=== PATIENT | female | born 1955 | race Caucasian/White ===

== ENCOUNTER 2018-12-08 22:37 | Inpatient (IN) | payer OTHER ==
[~2018-12-08] VITALS: Ht 162.5 cm; Wt 61.2 kg
--- NOTE | ~2018-12-08 | PR ---
[place], [place] PROGRESS NOTE NAME: ROBBIE FAULKNER UNIT #: [id number] ROOM: 316 DOCTOR: LADY BONILLA MD BIRTHDATE: [birth year] DOS: 12/16/2018 INTERVAL NOTE CHIEF COMPLAINT: "I am feeling better, but there is still room for improvement." SUMMARY OF THE VISIT: The patient was interviewed as she was sitting, finishing her breakfast. She engaged readily in conversation, reporting that she is feeling better, but there is still some depression and anxiety, persisting. She did thank me for helping her and also discussed with me her fear about returning home and having to clean the home because she had scabies. She has several pets at home to that, she is worried about. She convincingly denies medication side effects and states she is willing to allow me to increase her medications accordingly. MENTAL STATUS: She is alert and oriented. Mood does seem to be still somewhat depressed with anxious overtones, but overall improved from admission. There is no hypomania or hector. There is no gross psychosis. Memory is intact. PLAN: I will go ahead and increase her Periactin to 8 mg 4 times a day, Seroquel 50 mg 4 times a day and hydroxyzine to 50 mg 4 times a day. My hope is to avoid the use of any addicting agent and utilize drugs that will multitask to stabilize her mood, decrease her itching while decreasing the anxiety. We will engage in individual and christine milieu activity, returning then to the least restrictive environment when psychiatrically stable. LADY BONILLA MD CM:PNTRANS 42 LADY BONILLA MD 12/16/182139 interface
--- NOTE | ~2018-12-08 | WRIGHTHP ---
[place], [place] PATIENT HISTORY AND PHYSICAL EXAM NAME: ROBBIE FAULKNER UNIT #: [id number] ROOM: 311 DOCTOR: LADY BONILLA MD BIRTHDATE: [birth year] DOS: 12/09/2018 INITIAL PSYCHIATRIC EVALUATION CHIEF COMPLAINT: "I thought about getting a taxi and driving off a mountain." HISTORY OF PRESENT ILLNESS: This is a 63-year-old white female who was admitted to the [facility] from [facility]. The patient had presented there acutely depressed, stating that she was suicidal. The patient at the age of 63 has a plethora of medical problems including end-stage COPD and significant cardiac issues as well as seizure disorder. The patient had hoped to undergo a lung transplant, but was denied because of her multiple medical problems. This has led to her becoming increasingly more depressed and despondent. The patient reports seeing Dr. Manny Vela and a counselor, Tiana, in his office for some time, but states that her depression has worsened over the last several weeks prior to this admission. She endorses multiple neurovegetative symptoms including poor sleep and appetite, anergia, anhedonia, hopeless and helpless feelings, crying spells and inability to cope. Most importantly, she is having fleeting suicidal ideation with a significant plan. She is admitted now to rule out organic factors to attempt to stabilize on medication and to determine the least restrictive environment to which she could return. PAST MEDICAL HISTORY: Remarkable for coronary artery disease, COPD, hyperlipidemia, hypertension, neuropathy, seizure disorder. SOCIAL HISTORY: The patient does not drink alcohol nor does she smoke cigarettes, although she does have a past history of cigarette smoking. She uses no illicit drugs. ALLERGIES: Listed to ASPIRIN. STRENGTHS: Ambulatory, good verbal skills. WEAKNESSES: Chronic mental health and physical ailments, poor coping skills. MENTAL STATUS: The patient is alert and oriented to person, place, approximate to time. Mood is overwhelmingly depressed and despondent. Her affect is flat, blunted and constricted. She initially spoke in a whisper, but then eventually became much more engaging, especially when she talked about her service animals. She endorses multiple neurovegetative symptoms including the suicidal ideation. There is no hypomania or hector noted. There are no overt auditory or visual hallucinations noted. No delusions, no paranoia. Short-term memory does have gaps, otherwise she is intact. DIAGNOSES UPON ADMISSION: Major depression, recurrent, severe and dysthymic disorder. PLAN: At this point, I have discontinued her current antidepressant and started her on Cymbalta 30 mg at bedtime. The patient has been complaining of significant itching. I will start her on Periactin 4 mg t.i.d. Of note, the [place], [place] PATIENT HISTORY AND PHYSICAL EXAM NAME: ROBBIE FAULKNER UNIT #: [id number] ROOM: 311 DOCTOR: LADY BONILLA MD BIRTHDATE: [birth year] patient is taking over 35 medications. I will reach out to the hospitalist to see if her medication regimen can be simplified into a much less polypharmacy regimen, so that she is not overwhelmed with her medications. Meanwhile, we will engage in individual and christine milieu activity with the ultimate plan to return to the least restrictive environment when psychiatrically stable. LADY BONILLA MD CM:HISPHYS:PATIENT HISTORY AND PHYSICAL EXAMINATION 6 2 LADY BONILLA MD 12/09/18901 interface
--- NOTE | ~2018-12-08 | PR ---
[place], [place] PROGRESS NOTE NAME: ROBBIE FAULKNER UNIT #: [id number] ROOM: 316 DOCTOR: LADY BONILLA MD BIRTHDATE: [birth year] DOS: 12/12/2018 CHIEF COMPLAINT: "I am still so itchy, but I think I am feeling less depressed." SUMMARY OF THE VISIT: The patient was interviewed as she had finished her breakfast and was sitting there, engaging in conversations with peers. She stopped and engaged in conversation with me shaking my hand and thanking me for helping her. Overall, she reports that she is feeling less depressed. The anxiety is still somewhat present as is the itching. She focused mainly on the itching. Nurses report that prior to starting the Seroquel, she did complain of more anxiety, but they have noticed that with the Seroquel on board, she does appear much less anxious and seems to be doing much better. MENTAL STATUS: She is alert and oriented to person, place and fairly to time. Mood does seem to be strongly trending towards euthymia. Affect is more appropriate. There is no hector, hypomania or gross psychosis noted. Memory is intact. PLAN: I will increase her Periactin from 4 mg 3 times a day to 4 mg 4 times a day in an effort to decrease her itching. We will continue to engage in individual and christine milieu activity, returning then to the least restrictive environment when psychiatrically stable. LADY BONILLA MD CM:PNTRANS [id number] LADY BONILLA MD 12/12/18 1024 interface
--- NOTE | ~2018-12-08 | PR ---
[place], [place] PROGRESS NOTE NAME: ROBBIE FAULKNER UNIT #: [id number] ROOM: 316 DOCTOR: LADY BONILLA MD BIRTHDATE: [birth year] DOS: 12/10/2018 INTERVAL NOTE CHIEF COMPLAINT: "I feel better, thank you." SUMMARY OF THE VISIT: The patient was interviewed as she was sitting on her bed, eating her breakfast. She currently is in isolation because of scabies. She was pleasant, however, as I approached and she smiled readily reporting that the itching is much less since the medication changes and she slept well and is feeling positive that she is going to get better. MENTAL STATUS: She is alert and oriented. Mood does seem to be more euthymic. Affect is more appropriate. There is no hector or hypomania present. There is no auditory or visual hallucination. No delusions, no paranoia. Memory is intact. PLAN: Her Tegretol level is therapeutic at 7.8, so we will maintain her current dosing of the Tegretol. I will increase her Cymbalta from 30 mg at bedtime to 60 mg at bedtime. Continue to engage in individual and christine milieu activity, returning to the least restrictive environment when psychiatrically stable. LADY BONILLA MD CM:PNTRANS 1 17 LADY BONILLA MD 12/10/18 2316 interface
--- NOTE | ~2018-12-08 | DS ---
[place], [place] DISCHARGE SUMMARY NAME: ROBBIE FAULKNER UNIT #: [id number] ROOM: 316 DOCTOR: LADY BONILLA MD BIRTHDATE: [birth year] DOS: 12/17/2018 CHIEF COMPLAINT: "I thought about getting a taxi and driving off a mountain." HISTORY OF PRESENT ILLNESS: This is a 63-year-old white female who was admitted through [facility]. The patient presented there acutely depressed, stating that she was suicidal. The patient has a plethora of medical problems including end-stage COPD, significant cardiac issues as well as seizure disorder. The patient had hoped to undergo a lung transplant, but has been denied this because her other medical conditions have made it impossible to do so. The patient endorsed significant depressive symptomatology as well as anxiety, noting multiple neurovegetative symptoms including poor sleep and appetite, anergia, anhedonia, hopeless, helpless feelings, crying spells, and inability to cope. The patient does see an outpatient counselor as well as Dr. Manny Vela, a psychiatrist in the [facility] [address]. She is admitted now to rule out any organic factors, to stabilize on medication, to engage in individual and christine milieu activity, returning then to the least restrictive environment when psychiatrically stable. SUMMARY OF THE HOSPITAL COURSE: The patient was admitted to the unit where her antidepressant regimen was discontinued in lieu of Cymbalta 30 mg at bedtime because of the significant anxiety that took the form of her constantly itching herself. The patient was started on hydroxyzine 50 mg t.i.d. and Periactin 4 mg t.i.d. This did impact positively on her anxiety and did calm her down somewhat, but she continued to persist nonetheless. Some of her itching was secondary to a diagnosis of scabies, which was treated by the hospitalist. Additionally, through the course of her stay, her Cymbalta was increased to 30 mg twice daily; Periactin was ultimately raised to 8 mg 4 times a day and the Vistaril to 50 mg 4 times a day. The patient did state that she had been on mood stabilizers in the past and had done well with Seroquel. Seroquel was reintroduced at a dose of 25 mg 3 times a day and subsequently increased to 50 mg 4 times a day to be given with the Periactin and the hydroxyzine. This impacted positively on her symptomatology. The patient became much less anxious, much less depressed and was able to engage readily in all group activities as well as attending to her own ADLs without help. The patient had improved sufficiently and had reported that the suicidal thoughts had dissipated completely. She returned home and will have outpatient followup with Dr. Manny Vela as well as his psychologist. MENTAL STATUS AT DISCHARGE: The patient is alert and oriented. Mood does seem to be euthymic. Affect appropriate. There is no hector, hypomania or psychosis. Memory is fully intact. DIAGNOSES AT DISCHARGE: Major depression, recurrent, severe and dysthymic disorder. PLAN: All of her prescriptions have been e-scribed to [facility]. She will have outpatient followup with Dr. Manny Vela as well as one of his counselors in the office. At the time of discharge, she was both medically and psychiatrically stable. [place], [place] DISCHARGE SUMMARY NAME: ROBBIE FAULKNER UNIT #: [id number] ROOM: [facility] DOCTOR: LADY BONILLA MD BIRTHDATE: [birth year] LADY BONILLA MD CM:ARIELLE [id number] LADY BONILLA MD 12/17/18 1008 interface
--- NOTE | ~2018-12-08 | PR ---
[place], [place] PROGRESS NOTE NAME: ROBBIE FAULKNER UNIT #: [id number] ROOM: 316 DOCTOR: LADY BONILLA MD BIRTHDATE: [birth year] DOS: 12/15/2018 CHIEF COMPLAINT: "I am still feeling very anxious." SUMMARY OF THE VISIT: The patient was interviewed as she was sitting finishing her breakfast. She reports ongoing anxiety throughout the day. She convincingly denies any medication side effects. Specifically, she denies any sedation or somnolence. She is willing to allow me to adjust her medicines accordingly. MENTAL STATUS: She is alert and oriented to person, place and time. Mood does seem to be trending towards euthymia with anxious overtone still present. There is no hypomania or hector. There is no gross psychosis. Short term, intermediate, and long-term memory for the most part are intact. PLAN: I will go ahead and increase her Seroquel from 25 mg 3 times a day to 50 mg 3 times a day and augment this immediately with Vistaril 50 mg 3 times a day in an effort to control this anxiety. We will continue her other psychotropics and continue to engage her in individual and christine milieu activity, returning then to the least restrictive environment when psychiatrically stable. LADY BONILLA MD CM:PNTRANS 0849 LADY BONILLA MD 12/15/18 0947 interface
[2018-12-08] MEDS ORDERED: VENTOLIN 02.5 MG/3 M INH (23:20)
[2018-12-08] MEDS ORDERED: PROAIR HFA8.5 GM INH (23:21)
[2018-12-08] MEDS ORDERED: ALENDRONATE SOD70 M1 PO (23:22)
[2018-12-08] MEDS ORDERED: LIPITOR40 MG PO (23:23)
[2018-12-08] MEDS ORDERED: CALCIUM 500 +1 EAC3 PO (23:24)
[2018-12-08] MEDS ORDERED: OYSTERCAL-D 501 EACH PO (23:24)
[2018-12-08] MEDS ORDERED: CLOPIDOGREL75 MG PO (23:26)
[2018-12-08] MEDS ORDERED: VITAMIN D31000 UNIT PO (23:26)
[2018-12-08] MEDS ORDERED: VOLTAREN T (23:30)
[2018-12-08] MEDS ORDERED: BREO ELLIPTA 11 EACH INH (23:32)
[2018-12-08] MEDS ORDERED: Nizoral 2%15 GM T (23:32)
[2018-12-08] MEDS ORDERED: LISINOPRIL10 M1 PO (23:33)
[2018-12-08] MEDS ORDERED: RESTORA RX CAP1 EACH PO (23:33)
[2018-12-08] MEDS ORDERED: MAG6464 MG PO (23:37)
[2018-12-08] MEDS ORDERED: REMERON15 M2 PO (23:39)
[2018-12-08] MEDS ORDERED: MULTIVITAMINS1 EAC5 PO (23:40)
[2018-12-08] MEDS ORDERED: NITROSTAT0.4 MG SL (23:41)
[2018-12-08] MEDS ORDERED: OMEPRAZOLE10 MG PO (23:42)
[2018-12-08] MEDS ORDERED: ONDANSETRON HYDR4 M1 PO (23:43)
[2018-12-08] MEDS ORDERED: LYRICA150 M1 PO (23:44)
[2018-12-08] MEDS ORDERED: SEROQUEL200 MG PO (23:44)
[2018-12-08] MEDS ORDERED: HEALTHYLAX17 GM PO (23:44)
[2018-12-08] MEDS ORDERED: DALI500T PO (23:45)
[2018-12-08] MEDS ORDERED: SODIUM CHLORIDE15 ML INH (23:47)
[2018-12-08] MEDS ORDERED: THEO-24 200MG200 MG PO (23:47)
[2018-12-08] MEDS ORDERED: INCRUSE ELLI62.5 MCG INH (23:48)
[2018-12-08] MEDS ORDERED: TEGRETOL200 MG PO (23:48)
[2018-12-08] MEDS ORDERED: ESTRADIOL42.5 GM V (23:58)
--- NOTE | 2018-12-09 01:19 | NUR ---
ROBBIE FAULKNER a 63 year old F admitted via stretcher from the ADMITTING as a emergency 72 hr. hold admission. Arrived on unit at 0119. ALLERGIES: ASPIRIN AND CELECOXIB. Vital signs are: 98.1-62-18 134/54. The client signed the following forms with stated understanding: Authorization For The Release of Medical Information, Clothing List, Consent and Release Forms/Receipt of Rights, Acknowledgement of Advance Directive Information, Behavioral Health Consent Form, and Informed Consent of Medications. Admitted under the services of Dr. IRENE AYALALADY. A search was conducted and hazardous articles were removed. Patient was pink slipped for consent of voluntary admission and hospitalization. Client was oriented to the unit. KALI RYAN
--- NOTE | 2018-12-09 01:23 | NUR ---
DR. ROSS NOTIFIED OF NEW ADMISSION. CONSULT TO BE PUT UNDER DR. NESS.
--- NOTE | 2018-12-09 01:35 | NUR ---
Dr. Subramanian came and saw patient. Awaiting new orders.
[2018-12-09 01:36] VITALS: BP 134/54
[2018-12-09 01:42] VITALS: BP 134/54
--- NOTE | 2018-12-09 03:00 | NUR ---
ROBBIE FAULKNER [id number] Please refer to the physician's history and physical for past medical history, comorbid conditions, and allergies. Diagnosis: MAJOR DEPRESSION RECURRENT Bc Score: 18,AT RISK WOUND DESCRIPTIONS: Wound Number: 1 Location of the wound: right upper arm Thickness: Partial Size: 0.1cm x 0.1cm x 0.1cm Tunneling: none Undermining: none Sinus Tract: none Presence of Exudate: Sanguineous Amount: Light Color: Red Odor: None Periwound Skin Appearance: Erythema Wound edges: approximated Pain (associated with wound): none at time of assessment How does patient state this happened? pt states very itchy and that she was given asprin that she is allergic to and that is what caused these areas Wound Number: 2 Location of the wound: left upper arm Thickness: Partial Size: 2.5cm x 2.5cm x 0.1cm Tunneling: none Undermining: none Sinus Tract: none Presence of Exudate: Sanguineous Amount: Light Color: Red Odor: None Periwound Skin Appearance: Erythema Wound edges: approximated Pain (associated with wound): none at time of assessment How does patient state this happened? pt states very itchy and that she was given asprin that she is allergic to and that is what caused these areas Patient has mulitple intact scabbed areas noted to bilateral upper arms, bilateral lower legs, upper chest, abdomen and upper back. Patient has linear scabbed areas noted to lower back and buttocks. Patient has scattered ecchymotic areas to bilateral upper arms, bilateral lower legs and abdomen Surface the patient is resting on: Proform SKIN PREVENTION RECOMMENDATION: 1. Pressure redistribution support surface as appropriate 2. Elevate heels 3. Remove boots/TEDS every shift and reapply 4. Head of bed 30 degrees as tolerated 5. Assess nutrition and hydration 6. Manage moisture 7. Avoid the use of containment devices while in bed 8. Use absorptive products on surfaces limit layers of linens on bed 9. Turn and reposition every 1-2 hours in bed and every 1 hour in chair as tolerated 10. Weight shifts every 15 minutes while up in chair 11. Offloading with pillows or device to keep heels elevated off bed 12. Monitor skin at least every shift 13. Inspect under medical devices twice a day WOUND TREATMENT RECOMMENDATIONS: Cleanse bilateral upper arms with nss and apply dsd due to drainage. Cleanse all scabbed areas with soap and water pat areas dry then apply hydrocortisone cream BID.
--- NOTE | 2018-12-09 03:05 | NUR ---
Notified Dr. Subramanian regarding patient linear scab areas noted to lower back and buttocks and other scabbed areas over patient body he stated he will order a hydrocortisone cream at this time and monitor the areas.
[2018-12-09 03:17] LABS: BILIRUBIN NEGATIVE (NEGATIVE); BLOOD TRACE-INTACT (NEGATIVE); CLARITY CLEAR (CLEAR); COLOR YELLOW (YELLOW); GLUCOSE NEGATIVE (NEGATIVE); KETONE 1+ (NEGATIVE); LEUKO ESTERASE 3+ (NEGATIVE); NITRITE NEGATIVE (NEGATIVE); UROBILINOGEN 0.2 E.U./dl (0.2-1.0)
--- NOTE | 2018-12-09 03:20 | NUR ---
Caro,from wound care,here and examined patient. Caro notified Dr. Subramanian regarding scratches and bruising on patient's body. Awaiting for orders.
[2018-12-09 03:47] LABS: EPITHELIAL CELLS 20-25; WBC 21-30 wbc/hpf (0-5)
[2018-12-09 03:48] LABS: BACTERIA 1+
--- NOTE | 2018-12-09 05:32 | NUR ---
PATIENT MONITORED ON Q15 MINUTE SAFETY CHECKS THROUGHOUT THE NIGHT. PT NOTED TO HAVE SLEPT APPROXIMATELY AN HOUR DUE TO BEING A LATE ADMISSION.
--- NOTE | 2018-12-09 05:38 | NUR ---
Called and notified Dr. Subramanian regarding urinanalysis result. Awaiting new orders.
[2018-12-09 07:04] LABS: ALBUMIN 3.5 gm/dl (3.1-4.5); ALKALINE PHOSPHATASE 150 U/L (45-117); BUN 18 mg/dl (7-24); CHLORIDE 99 mmol/L (98-107); CHOLESTEROL 158 mg/dL (<200); CREATININE 0.68 mg/dL (0.55-1.02); HDL CHOLESTEROL 90 mg/dl (40-60); LDL CHOLESTEROL 58 mg/dL (9-159); POTASSIUM 3.7 mmol/L (3.5-5.1); SGOT/AST 42 IU/L (3-35); SGPT/ALT 34 U/L (12-78); SODIUM 134 mmol/L (136-145); TOTAL PROTEIN 6.7 gm/dL (6.4-8.2); TRIGLYCERIDES 50 mg/dl (<150); VLDL CHOLESTEROL 10 mg/dL (6-40)
[2018-12-09 07:19] LABS: THYROID STIM HORMONE (HS) 0.366 uIU/ml (0.358-4.75)
[2018-12-09 07:40] LABS: VITAMIN D, 25-HYDROXY 34.2 ng/mL (30-100)
--- NOTE | 2018-12-09 08:30 | NUR ---
Treatment Plan meeting with Dr. Summers, RN, AT, SW and Block Tester. Plan for discharge Next week. Pt. came to [facility] from Home. Will follow.
--- NOTE | 2018-12-09 08:33 | NUR ---
Dr. Acuña notified of wound care recommendations.
[2018-12-09 08:34] VITALS: BP 104/65
--- NOTE | 2018-12-09 10:35 | NUR ---
DR. LAROSE ON UNIT TO ASSESS PT, PER DR. MCALLISTER PT NEEDS TO BE ISOALTED AND TREATED FOR SCABIES. PT PLACED IN ROOM 316 AND PLACED ON CONTACT ISOALTION PRECAUTIONS. PER DR. MCALLISTER HE WILL ORDER THE CREAM TO BE PLACED ON THE PATIENT BEFORE BED TONIGHT AND PT MUST BE SHOWERED IN THE MORNING. PER LEORA HUNTER, PT MUST REAMIN ON ISOALTION FOR 24 HOURS AFTER TREATMENT. ORDERS RECEIVED TO MAKE PT LINE OF SIGHT PER DR. BONILLA. NURSING CENTER MGR AND DIRECTOR UPDATED.
--- NOTE | 2018-12-09 11:10 | NUR ---
ORDERS RECEIVED FROM DR. BONILLA FOR LINE OF SIGHT.
--- NOTE | 2018-12-09 11:55 | NUR ---
AM GROUP PT IS UNABLE TO ATTEND GROUP THERAPY DUE TO CONTACT ISOLATION. PT WAS GIVEN ACTIVITIES TO DO IN HER ROOM.
--- NOTE | 2018-12-09 14:40 | NUR ---
PHYSICAL THERAPY Patient independent throughout U, PT screen complete. No PT needs at this time. Discharge PT orders. Thank you. Susana Calderon,PT,DPT
--- NOTE | 2018-12-09 14:40 | NUR ---
Occupational Therapy referral received and screen completed. Patient in bed in contact isolation. Milieu reports that patient is independent in all ADLs and mobility and "needs no assist at all". No further OT indicated. Discharge OT referral. Thank you. Ana Santillan OTR/cristina
--- NOTE | 2018-12-09 15:19 | NUR ---
P: DEPRESSED MOOD, STATES "FEELS LIKE I HAVE FALLEN FOR THE LAST 3 WEEKS" PATIENT HAS A PASSIVE WISH WITH NO PLAN. I: ONE ON ONE FOR EMOTIONAL SUPPORT AND REDIRECTIO PROVIDED. R: EFFECTIVE. PATIENT IN ROOM, RESTING IN BED, CONTINUE TO BE IN CONTACT ISOLATION. MOOD IS DEPRESSED; DENIES ANY HALLUCINATIONS, DELUSIONS, HI/SI OR PAIN. MEDICAITON COMPLAINT. Q 15 MINUTE SAFETY CHECKS MAINTAINED. INDPENDENT WITH ACTIVITIES OF DAILY LIVING, CONTINENT OF BOWEL AND BLADDER, SET FOR MEALS. ENCOURAGED MEAL INTAKES AND FLUIDS. AMBULATORY WITH STEADY GAIT. CONTINUE TO S 02 AT 3 LITERS WITH OUT DISTRESS. INTERACTIVE WITH STAFF. P: CONTINUE TO MONITOR FOR SUICIDAL IDEAS, MOOD, MEAL INTAKES. PROVIDE ONE ON ONE FOR EMOTIONAL SUPPORT, REDIRECTION, ENCOURAGEMENT TO EAT AND DRINK.
--- NOTE | 2018-12-09 15:30 | NUR ---
Shift chart check completed.
--- NOTE | 2018-12-09 15:33 | NUR ---
PM GROUP/ART AND MUSIC PT IS UNABLE TO ATTEND GROUP THERAPY AT THIS TIME DUE TO CONTACT ISOLATION
--- NOTE | 2018-12-09 17:21 | NUR ---
Shift chart check completed.
--- NOTE | 2018-12-09 17:39 | NUR ---
SPOKE WITH DR. BONILLA RE: PT SUICIDE SCORE COMING DOWN TO 6 FROM 36. PT DENIES A PLAN OR A WISH AT THIS TIME. PER DR. BONILLA CONTINUE THE LINE OF SIGHT WHILE AWAKE AND WILL RE-EVALUATE TOMORROW.
[2018-12-09 19:26] VITALS: BP 115/62
--- NOTE | 2018-12-09 20:43 | NUR ---
EVENING/RELAXTION/REMINISCE PT IN CONTACT ISOLATION AND UNABLE TO ATTEND AT THIS TIME. PT GIVEN WORDSEARCHES AND MUSIC TO LISTEN TO IN ROOM UNTIL PT CAN ATTEND GROUP THERAPY.
--- NOTE | 2018-12-09 23:07 | NUR ---
PT REQUESTED BREATHING TX AT THIS TIME, RESPIRATORY NOTIFIED AND STATED THAT IT IS TOO SOON FOR A TX AT THIS TIME. PT'S RESPIRATIONS EASY AND REGULAR ON 3L NC, NO WHEEZING OR RALES NOTED. SPO2 100%.
--- NOTE | 2018-12-10 02:26 | NUR ---
P-DEPRESSED MOOD I-ASSESS ORIENTATION, MOOD, AND BEHAVIOR. PROVIDE 1:1 FOR VENTILATION OF FEELINGS WITH EMOTIONAL SUPPORT NEEDED. ENCOURAGE MEDICATION COMPLIANCE AND EDUCATE. MAINTAIN LOS WHILE AWAKE AND CONTACT PRECAUTIONS. MONITOR SLEEP. R-PATIENT ALERT AND ORIENTED X2 WITH CONFUSION. MOOD REMAINS MILDLY DEPRESSED. PT CALM AND COOPERATIVE, INTERACTIVE WITH STAFF. DURING 1:1 PATIENT PREOCCUPIED WITH HOW SHE CONTACTED SCABIES AND STATED "MAYBE I GOT IT FROM [employer] AND GIVING HUGS", EMOTIONAL SUPPORT AND EDUCATION PROVIDED. PT DENIES SI/HI AND HALLUCINATIONS, NO NOTED RESPONDING TO INTERNAL STIMULI. NO PARANOIA/DELUSIONS OBSERVED. MEDICATION COMPLIANT WITHOUT DIFFICULTY AFTER REVIEW. NO PHYSICAL COMPLAINTS VOICED. PT CURRENTLY LAYING DOWN WITH EYES CLOSED, RESPIRATIONS EASY AND REGULAR ON 3L NC ORDERED. NO SIGNS OR SYMPTOMS OF DISTRESS NOTED. LOS WHILE AWAKE AND CONTACT PRECAUTIONS MAINTAINED. P-CONTINUE TO MONITOR MOOD AND BEHAVIORS. PROVIDE 1:1 WITH EMOTIONAL SUPPORT NEEDED. ENCOURAGE MEDICATION COMPLIANCE AND EDUCATE. MAINTAIN CONTACT PRECAUTIONS AND LOS WHILE AWAKE.
--- NOTE | 2018-12-10 04:37 | NUR ---
24 HOUR CHART CHECK COMPLETED.
[2018-12-10 06:56] LABS: CARBAMAZEPINE (TEGRETOL) TOTAL 7.8 ug/ml (4-12); THEOPHYLLINE 3.7 ug/ml (10-20)
[2018-12-10 08:24] VITALS: BP 116/50
--- NOTE | 2018-12-10 08:25 | NUR ---
DR. BONILLA ON UNIT TO ASSESS PT, UPDATE PROVIDED, ORDERS RECEIVED TO D/C LINE OF SIGHT. NURSING HANDCREW FOREMAN AWARE.
--- NOTE | 2018-12-10 08:30 | NUR ---
Treatment Plan meeting with Dr. Summers, RN, AT, SW and Facilities Officer. Plan for discharge Next week. pt. will return home.
--- NOTE | 2018-12-10 09:49 | NUR ---
P: PT INCREASINGLY ANXIOUS AND VISIABLY SHAKING. PT STATED "I JUST FEEL LIKE THE ROOM IS CLOSING IN ON ME, I NEED OUT" I: PROVIDE EMOTIONAL SUPPORT AND 1:1 FOR PT TO VOICE FEELINGS, ENCOURAGE DEEP BREATHING TECHNIQUES, PROVIDE DIVERSIONAL ACTIVITIES SUCH MUSIC AND COLORING PAGES R: INTERVENTIONS INEFFECTIVE PT REMIANS ANXIOUS. PT ALERT TO PERSON, PLACE AND TIME. PT MED COMPLIANT WITHOUT DIFFICULTY, MED EDUCATION PROVIDED. NO HALLUCINATIONS OR DELUSIONS. PT DENIES ANY SUICIDAL THOUGHTS. PT AMBULATORY, GAIT STEADY. PT CONTINENT OF BOWEL AND BLADDER. P: PT ADMINISTERED PO PRN ATIVAN 1 MG PER ORDERS. STAFF WILL CONTINUE TO MONITOR PT BEHAVIORS ON Q15 MIN SAFETY CHECKS, ENCOURAGE MED COMPLIANCE AND PROVIDE MED EDUCATION. PT SHOWERED THIS SHIFT AT 1030 AM, PT WILL REMAIN ON ISOLATIION PRECAUTIONS UNTIL 12/11/18 AT 1030 AM PER ORDERS.
--- NOTE | 2018-12-10 11:00 | NUR ---
SPOKE WITH CRISS ROY TOPOGRAPHIC COMPUTATOR RE: PT LABS. NO FURTHER ORDERS AT THIST BEL.
--- NOTE | 2018-12-10 11:30 | NUR ---
ATIVAN EFFECTIVE, PT STATES SHE IS FEELING LESS ANXIOUS.
--- NOTE | 2018-12-10 11:51 | NUR ---
AM GROUP PT IS IN CONTACT ISOLATION. VISITED PT AND BROUGHT A NEW TESTAMENT, SOME COLORING PAGES AND SOME INFORMATION THAT PT REQUESTED. PT WAS GRATEFUL BUT STATED, "I FEEL LIKE THE GUZMAN ARE CLOSING IN ON ME AND I JUST WANT TO RUN OUT OF THE ROOM! HAVE YOU EVER FELT THAT WAY?" PT WAS REASSURED THAT ANYONE STUCK IN A LITTLE ROOM WOULD FEEL THE SAME WAY. SUGGESTED COPING AND RELAXATION TECHNIQUES FOR WHEN THESE FEELINGS ARISE.
--- NOTE | 2018-12-10 15:37 | NUR ---
PM GROUP/SOCIALIZING PT IS IN CONTACT ISOLATION AND IS UNABLE TO ATTEND GROUP THERAPY
--- NOTE | 2018-12-10 15:57 | NUR ---
1:1 individual session with pt this AM. Discussed pt's stressors and family history. Discussed pt's goals. Pt admitted to a worsening depression and a feeling of being overwhelmed with life. Pt stated that she no longer can find venus in anything. Discussed pt's strengths and tools pt has used in the past during difficult times. Discussed pt's belief system and challenges with that. Provided pt with a gratitude journal and discussed the benefits of journaling. Pt was pleasant. She continues to voice a loss of hope for her future. Pt denied suicide ideations at that time but states "They come and go." Pt did voice that she wants to feel better and wants to enjoy life again.
[2018-12-10 19:27] VITALS: BP 112/56
--- NOTE | 2018-12-10 21:33 | NUR ---
P-DEPRESSED MOOD I-ASSESS ORIENTATION, MOOD, AND BEHAVIOR. PROVIDE 1:1 FOR VENTILATION OF FEELINGS WITH EMOTIONAL SUPPORT NEEDED. ENCOURAGE MEDICATION COMPLIANCE AND EDUCATE. MAINTAIN CONTACT PRECAUTIONS. MONITOR SLEEP. R-PATIENT ALERT AND ORIENTED X2 WITH CONFUSION. MOOD REMAINS MILDLY DEPRESSED. PT CALM AND COOPERATIVE, INTERACTIVE WITH STAFF. DURING 1:1 PATIENT STATED THAT BEING IN HER ROOM BECAUSE OF BEING ON ISOLATION IS MAKING HER FEEL DOWN, ANXIOUS AT TIMES. THAT EARILER TODAY SHE EVEN FELT LIKE THE ROOM WAS CLOSING IN ON HER AND HAD TO TAKE SOMETHING FOR IT. EMOTIONAL SUPPORT PROVIDED WITH POSITIVE EFFECT. PT DENIES SI/HI AND HALLUCINATIONS, NO NOTED RESPONDING TO INTERNAL STIMULI. NO PARANOIA/DELUSIONS OBSERVED. MEDICATION COMPLIANT WITHOUT DIFFICULTY AFTER REVIEW. NO PHYSICAL COMPLAINTS VOICED. PT CURRENTLY LAYING DOWN WITH EYES CLOSED, RESPIRATIONS EASY AND REGULAR ON 3L NC ORDERED. NO SIGNS OR SYMPTOMS OF DISTRESS NOTED. P-CONTINUE TO MONITOR MOOD AND BEHAVIORS. PROVIDE 1:1 WITH EMOTIONAL SUPPORT NEEDED. ENCOURAGE MEDICATION COMPLIANCE AND EDUCATE. MAINTAIN CONTACT PRECAUTIONS AND Q 15 MIN CHECKS.
--- NOTE | 2018-12-11 05:01 | NUR ---
24 HOUR CHART CHECK COMPLETED.
--- NOTE | 2018-12-11 05:41 | NUR ---
PATIENT OBSERVED ON Q 15 MIN CHECKS TO HAVE SLEPT APPROX 6 HOURS WITH NO AWAKENINGS OR SIGNS AND SYMPTOMS OF DISTRESS NOTED.
[2018-12-11 07:48] VITALS: BP 122/78
--- NOTE | 2018-12-11 08:30 | NUR ---
Treatment Plan meeting with Dr. Summers, RN, AT, SW and Residential Nurse. Plan for discharge Next week. pt. will return home.
--- NOTE | 2018-12-11 09:26 | NUR ---
PT C/O ANXIETY. PER DR. BONILLA, ADMINISTER ATIVAN 0.5MG SL NOW. ADMINISTERED PER ORDER.
--- NOTE | 2018-12-11 10:30 | NUR ---
PT IN SHOWER, ROOM BEING CLEANED BY HOUSEKEEPING. ALL BEDDING BAGGED AND SENT TO LAUNDRY. ATIVAN APPEARS EFFECTIVE AT THIS TIME. PT NO LONGER C/O ANXIETY. STATES "I AM SO GLAD TO BE OUT OF THIS ROOM".
--- NOTE | 2018-12-11 11:47 | NUR ---
AM GROUP/EXERCISE PT HAS BEEN REMOVED FROM CONTACT ISOLATION AND JOINED GROUP LATE. PT WORKED ON A WATERCOLOR PAINTING AND SOCIALIZED WITH PEERS AND STAFF. PT EXPRESSED NO SUICIDAL IDEATIONS WHILE IN GROUP.
--- NOTE | 2018-12-11 12:55 | NUR ---
PT STATES SHE IS FEELING ANXIOUS AT THIS TIME. PT ENCOURAGED TO UTILIZE NONPHARMACOLOGICAL METHODS TO ATTEMPT TO REDUCE STRESS AT THIS TIME. PT TEACHING PROVIDED THROUGH RELAXATION BREATHING TECHNIQUES. PT ALSO PROVIDED WITH WORKSHEETS ON COPING SKILLS AND RECOGNIZING TRIGGERS FOR ANXIETY. PT VERBALIZED AN AFFINITY FOR COLORING, ALSO PROVIDED WITH ADULT COLORING PAGES. PT STATES SHE WILL BE HAPPY TO TRY THESE METHODS, BUT SHE MOSTLY JUST WANTS TO COLOR. PT CURRENTLY IN DINING ROOM WITH PEERS, INTERACTING, SMILING AND LAUGHING. WILL CONTINUE TO ASSESS PT FOR FEELINGS OF ANXIOUSNESS AND WILL EDUCATE AND PROVIDE EMOTIONAL SUPPORT APPROPRIATE.
--- NOTE | 2018-12-11 14:24 | NUR ---
When speaking with this automobile and property underwriter, pt stated that she felt "her nerves were coming out of her body." She continued that she feels like this sometimes when she is feeling anxious. Pt stated that she felt very uncomfortable. Asked pt what helps her at home when she feels this way. Pt stated that walking and being outside helps. Discussed this further and provided other possible coping skills. Pt continued to voice anxiety. Informed pt that this automobile and property underwriter would speak to RN about possible PRN med. Left pt and spoke with pt's RN informing her of pt's complaint. [place] that pt received PRN Ativan 0.5 mg approximately 3 hours prior and would need to wait at least another hour for additional PRN.
--- NOTE | 2018-12-11 14:59 | NUR ---
Pt is calmer now. She is in afternoon group activity talking with case management coordinator and this television writer.
--- NOTE | 2018-12-11 15:37 | NUR ---
PM GROUP/ART AND MUSIC PT ATTENDED AND PARTICIPATED IN ALL GROUP ACTIVITIES. PT EXPRESSED NO SUICIDAL IDEATIONS WHILE IN GROUP. PT WAS TALKATIVE AND ON TASK.
[2018-12-11 19:14] VITALS: BP 126/84
--- NOTE | 2018-12-11 23:53 | NUR ---
24 HR chart check completed.
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
--- NOTE | 2018-12-12 05:08 | NUR ---
PATIENT SLEPT >6 HOURS OF UNINTERRUPTED SLEEP THROUGHOUT SHIFT. Q 15 MINUTE CHECKS MAINTAINED
[2018-12-12 07:46] VITALS: BP 125/78
--- NOTE | 2018-12-12 08:30 | NUR ---
Treatment Plan meeting with Dr. Summers, RN, AT, SW and Tmd Teacher. Plan for discharge Next week. Pt. will return home at discharge.
--- NOTE | 2018-12-12 08:30 | NUR ---
Patient resting quietly with no c/o discomfort. Respirations easy and regular. Vital signs stable. No overt distress. DR. BONILLA ON UNIT TO ASSESS PT AT THIS TIME. REPORT GIVEN. BROOKLYNN CHANCE
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
--- NOTE | 2018-12-12 11:55 | NUR ---
Spoke with pt briefly this AM. Pt voiced that she would like to set some goals and would like her boyfriend Zan involved. This senior grant writer attempted to phone Zan but was told that he was not home. Will attempt to call him again.
--- NOTE | 2018-12-12 15:41 | NUR ---
ELVIRA GROUP/KASSY PT ATTENDED AND PARTICIPATED IN ALL GROUP ACTIVITIES. PT DID NOT EXPRESS ANY SUICIDAL IDEATIONS WHILE IN GROUP. PT WAS TALKATIVE AND ON TASK
[2018-12-12 19:55] VITALS: BP 110/71
--- NOTE | 2018-12-12 23:54 | NUR ---
P-ANXIOUS, DEPRESSED MOOD. PATIENT ALERT AND ORIENTED WITH PERIODS OF CONFUSION. PATIENT WITH SHORT TERM AND SNF MEMORY DEFICITS. PATIENT CONTINUES ON CONTINUOUS OXYGEN AT 3L VIA NASAL CANNUAL AND TOLERATING WITHOUT DIFFICULTY. PATIENT WITH NO HALLUCINATIONS OR DELUSIONS. PATIENT DENIES SUICIDAL OR HOMICIDAL IDEATIONS AT THIS TIME I-REDIRECTION WITH 1:1 THERAPEUTIC INTERVENTIONS AND PRESENT REALITY. EDUCATE AND ENCOURAGE MEDICATION COMPLIANCE R-PATIENT STATING "I THINK IT IS TOO MUCH FOR ME TO LISTEN TO ALL THE YELLING HERE". PATIENT DISCUSSED WITH THIS NURSE ABOUT FEELING ANXIOUS WHEN THE OTHER PATIENTS START TO YELL OUT AND FELT LIKE BEING IN HER ROOM AWAY FROM THE OTHER PATIENTS. PATIENT STATES THAT SHE DOES STILL HAVE TIMES THAT SHE WANTS TO SCRATCH BUT STATES "I DON'T FEEL LIKE I AM ITCHY LIKE I WAS A FEW DAYS AGO. PATIENT ENCOURAGED TO VERBALIZE IF SHE THERE IS AN INCREASE WITH SCRATCHING TO SEE IF SKIN CONDITION NEEDS FURTHER ASSESSED. PATIENT VERBALIZED UNDERSTANDING. PATIENT PREOCCUPIED WITH SCABS ON SKIN. P-CONTINUE TO ENCOURAGE MEDICATION COMPLIANCE, CONTINUE TO PRESENT REALITY, ENCOURAGE GROUP THERAPY WHILE AWAKE
--- NOTE | 2018-12-13 01:04 | NUR ---
24 HR chart check completed.
--- NOTE | 2018-12-13 06:04 | NUR ---
PATIENT SLEPT >7 HOURS OF INTERRUPTED SLEEP THROUGHOUT SHIFT. Q 15 MINUTE CHECKS MAINTAINED
[2018-12-13 07:52] VITALS: BP 111/69
--- NOTE | 2018-12-13 09:34 | NUR ---
DR. DAWKINS ON UNIT TO ASSES PT, UPDATE PROVIDED.
--- NOTE | 2018-12-13 11:38 | NUR ---
AM GROUP/EXERCISE/DISCUSSION/ART PT ATTENDED AND PARTICIPATED IN ALL GROUP ACTIVITY'S. PT PLEASNAT AND ON TASK WITH NO S.I. EXPRESSED AT THIS TIME. PT STATING "I'M HAVING TROUBLE THINKING TODAY". PT WILL CONTINUE TO ATTEND AN DPARTICIPATE IN FUTURE GROUP SESSIONS.
--- NOTE | 2018-12-13 14:17 | NUR ---
P: PT ISOLATIVE TO ROOM THIS AM AFTER BREAKFAST. PT REPORTS FEELING ANXIOUS AT TIMES. I: PROVIDE EMOTIONAL SUPPORT AND 1:1 FOR PT TO VOICE FEELINGS, ENCOURAGE GROUP PARTICIPATION AND SOCIALIZATION, ENCOURAGE DEEP BRETHING EXERCISES. OFFER DIVERSIONAL ACTIVITIES R: PT ALERT TO PERSON, PLACE AND TIME. PT MED COMPLIANT WITHOUT DIFFICULTY, MED EDUCATION PROVIDED. PT PARTICIPATED IN AM GROUP WITH ENCOURAGEMENT, PT REQUIRED NO ENCOURAGEMENT TO PARTICIAPTE IN AFTERNOON GROUP. PT CONTINUES TO FEEL ANXIOUS AT TIMES. PT AMBUALTORY THROUGHTOUT UNIT, GAIT STEADY. PT CONTINENT OF BOWEL AND BLADDER. P: MONITOR PT BEHAVIORS ON Q15 MIN SAFETY CHECKS, ENCOURAGE MED COMPLIANCE AND PROVIDE MED EDUCATION, PROVIDE EMOTIONAL SUPPORT AND 1:1 FOR PT TO VOICE FEELINGS, CONTINUE TO ENCOURAGE GROUP PARTICIPATION AND SOCIALIZATION.
--- NOTE | 2018-12-13 15:43 | NUR ---
PM GROUP/AMANDA/LEISURE SKILLS PT ATTENDED AND PARTICIPATED IN ALL GROUP ACTIVITY'S. PT PLEASNAT AND ON TASK WITH NO S.I. EXPRESSED AT THIS TIME. PT WILL CONTINUE TO ATTEND AN DPARTICIPATE IN FUTURE GROUP SESSIONS.
[2018-12-13 19:37] VITALS: BP 102/64
--- NOTE | 2018-12-13 21:44 | NUR ---
P-ANXIOUS, DEPRESSED MOOD. PATIENT ALERT AND ORIENTED WITH PERIODS OF CONFUSION. PATIENT WITH SHORT TERM AND SHELTER MEMORY DEFICITS. PATIENT CONTINUES ON CONTINUOUS OXYGEN AT 3L VIA NASAL CANNULA AND TOLERATING WITHOUT DIFFICULTY. PATIENT WITH NO HALLUCINATIONS OR DELUSIONS. PATIENT DENIES SUICIDAL OR HOMICIDAL IDEATIONS AT THIS TIME I-REDIRECTION WITH 1:1 THERAPEUTIC INTERVENTIONS AND PRESENT REALITY. EDUCATE AND ENCOURAGE MEDICATION COMPLIANCE R-PATIENT STATING "I JUST WANT TO SLEEP TONIGHT WITHOUT THAT WOMAN YELLING ALL NIGHT AGAIN". THIS NURSE EXPLAINED TO PATIENT THAT THERE WAS NO WOMAN YELLING ALL NIGHT THE PREVIOUS NIGHT. PATIENT STATING "I THINK I MAY HAVE BEEN DREAMING ABOUT IT THEN. PATIENT VOICED "FEELING ANXIOUS AND THEN I START TO ITCH. THIS NURSE OFFERED PATIENT A PRN ATIVAN TO HELP WITH ANXIETY. PATIENT DECLINED TAKING ATIVAN AND RECEIVED HS MEDICATIONS AND VOICED WANT TO GO TO BED. PATIENT INTERACTIVE WITH PEERS IN DINING AREA PRIOR TO GOING TO BED. P-CONTINUE TO ENCOURAGE MEDICATION COMPLIANCE, CONTINUE TO PRESENT REALITY, ENCOURAGE GROUP THERAPY WHILE AWAKE
--- NOTE | 2018-12-13 22:49 | NUR ---
24 HR chart check completed.
--- NOTE | 2018-12-14 05:47 | NUR ---
PATIENT SLEPT >6 HOURS OF INTERRUPTED SLEEP THROUGHOUT SHIFT. Q 15 MINUTE CHECKS MAINTAINED
[2018-12-14 07:20] VITALS: BP 103/64
--- NOTE | 2018-12-14 11:52 | NUR ---
DR. DAWKINS ON UNIT TO ASSESS PT, UPDATE PROVIDED.
--- NOTE | 2018-12-14 12:40 | NUR ---
PT C/O COUGHING UP GREEN SPUTUM. NO OTHER COMPLIANTS NOTED. DR. POWERS UPDATED NO FURTHER ORDERS AT THIS TIME.
--- NOTE | 2018-12-14 12:56 | NUR ---
AM GROUP/GAMES PT ATTENDED AND PARTICIPATED IN ALL ACTIVITY'S. PT PLEASANT AND ON TASK WITH NO S.I. EXPRESSED AT THIS TIME. PT WILL CONTINUE TO ATTEND AND PARTICIPATE IN FUTURE RGOUP SESSIONS.
--- NOTE | 2018-12-14 15:26 | NUR ---
NO ADVERSE MOODS OR BEHAVIORS NOTED THIS SHIFT.PT ALERT TO PERSON, PLACE AND TIME. PT MED COMPLIANT WITHOUT DIFFICULTY, MED EDUCATION PROVIDED. PT CALM, MOOD IS STABLE. PT SPEECH CHILD LIKE AT TIMES. PT GOAL DIRECTED TOWARDS DISCHARGE, ASKING MULTIPLE TIMES, "WHEN DO I GET TO GO HOME?" ADVSIED PT TO SPEAK TO THE DR ON SATURDAY RE: DISCHARGE PLANS. PT DENIES ANY HALLUCINATIONS OR DELUSIONS, NO OVERT S/S NOTED. PT DENIES ANY SUICIDAL THOUGHTS. PT AMBULATORY THROUGHOUT UNIT, GAIT STEADY. PT CONTINENT OF BOWEL AND BLADDER. PT SHOWERED THIS SHIFT WITH MUCH ENCOURAGEMENT. PT REMAINS ON 3L O2 VIA NC, PER ORDERS. PT C/O COUGHING UP GREEN SPUTUM, DR. ROSENBERG AWARE, NEW ORDERS RECEIVED. PLAN IS TO MONITOR PT BEHAVIORS ON Q15 MIN SAFETY CHECKS, ENCOURAGE MED COMPLIANCE AND PROVIDE MED EDUCATION, PROVIDE EMOTIONAL SUPPORT AND 1:1 FOR PT TO VOICE FEELINGS.
[2018-12-14 20:00] VITALS: BP 103/68
--- NOTE | 2018-12-14 23:25 | NUR ---
P: INCREASED ANXIETY DUE TO STIMULATION ON MILEU, INCREASED RESPIRATION, POOR COPING SKILLS, DIFFICULTY FOCUSING WITH INCREASED DISTRACTION I: ASSISTED PT WITH BREATHING EXCERSICES, HOW TO REFOCUS HERSELF WHEN THINGS WERE NOT CALM OR ORGANIZED THE WAY SHE WANTS. PT DID ASK FOR HELP ON HOW TO BREATH, ALSO REPOSITIONED FURTHER AWAY FROM PEERS THAT WERE DISPLAYING INCREASED BEHAVIORS TO BE ABLE TO WATCH T.V. R: PT DID BREATHING INDEPENDANTLY, PT WATCHED T.V FOR SHORT TIME WITH ANOTHER PEER. STATED THAT THE TECHNIQUES HELPED HER GREATLY P: CONTINUE TO MONITOR FOR ANXIETY, MONITOR SLEEP, NO SI/HI OR DELUSIONS NOTED, 15 MIN CHECKS MONITORED, ENCOURAGE SLEEP
--- NOTE | 2018-12-15 04:46 | NUR ---
PT HAS BEEN ASLEEP SINCE 2299 NO AWAKENINGS NOTED 5+ HOURS AT THIS TIME
[2018-12-15 07:51] VITALS: BP 123/64
--- NOTE | 2018-12-15 08:07 | NUR ---
Patient resting quietly with no c/o discomfort. Respirations easy and regular. Vital signs stable. No overt distress. DR. BONILLA ON UNIT. UPDATE GIVEN. BROOKLYNN CHANCE
--- NOTE | 2018-12-15 08:30 | NUR ---
Treatment Plan meeting with Dr. Summers, RN, AT, SW and Payable Processor. Plan for discharge Saturday/Sat with return home at discharge.
--- NOTE | 2018-12-15 11:36 | NUR ---
AM GROUP PT CHOSE NOT TO ATTEND MORNING GROUP THERAPY. PT WAS IN BED RESTING AND STATED, "THAT ONE LADY WAS UP YELLING ALL NIGHT AND I DIDN'T GET ANY SLEEP"
--- NOTE | 2018-12-15 13:41 | NUR ---
[facility] APPROVED 12/09-12/15 WITH NEXT REVIEW DATE 12/16. AUTH NUMBER [id number]
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
--- NOTE | 2018-12-15 15:17 | NUR ---
Shift chart check completed.
--- NOTE | 2018-12-15 15:38 | NUR ---
PM GROUP/LEISURE INTERESTS PT ATTENDED AFTERNOON GROUP THERAPY AND PARTICIPATED BY COLORING AND SOCIALIZING. PT EXPRESSED SOME ANXIETY ABOUT GOING HOME BUT WAS ASSURRED THAT THIS WAS NATURAL. PT EXPRESSED NO SUICIDAL IDEATIONS WHILE IN GROUP.
--- NOTE | 2018-12-15 18:15 | NUR ---
PT STATES SHE IS FEELING BETTER AFTER TODAY'S MEDICATION ADJUSTMENT. PT ASSESSED FOR ORIENTATION LEVEL, MOOD AND AFFECT. ASSESSED FOR HALLUCINATIONS AND DELUSIONS. ASSESSED FOR SI, PLAN OR INTENT. ADMINISTERED MEDICATIONS PER ORDER. PT IS ALERT. ORIENTED X 4. MOOD APPEARS STABLE, AFFECT IS BLUNTED. PT DENIES HALLUCINATIONS AND DELUSIONS. NO OVERT S/S OF ATTENDING TO INTERNAL STIMULI. NO OVERT PARANOIA OR DELUSIONS. DENIES SI, PLAN OR INTENT. PT STATES "NO, I ACTUALLY FEEL GOOD." PT HAS BEEN IN GROUP ROOM WATCHING MOVIES T/O THIS SHIFT. STATES "A GOOD MOVIE IS LIKE A GOOD BOOK AND I JUST LOVE TO WATCH THESE MOVIES". PT IS MEDICATION COMPLIANT WITHOUT DIFFICULTY. WILL CONTINUE TO MONITOR PT'S MOOD AND BEHAVIORS. WILL CONTINUE TO ASSESS PT FOR FEELINGS OF SI, INTENT OR PLAN. WILL CONTINUE TO ENCOURAGE INTERACTION WITH PEERS AND STAFF. WILL ENCOURAGE PT TO VERBALIZE FEELINGS OF ANXIOUSNESS. WILL ENCOURAGE CONTINUED MEDICATION COMPLIANCE. Q 15 MIN MONITORING PER POLICY.
[2018-12-15 19:47] VITALS: BP 120/74
--- NOTE | 2018-12-15 20:42 | NUR ---
EVENING/RELAXTION/DISCUSSION PT ATTENDED AND PARTICIPATED IN ALL GROUP ACTIVITY'S. PT PLEASANT AND ON TASK WITH NO S.I. EXPRESSED. PT WILL CONTINUE TO ATTEND AND PARTICIPATE IN FUTURE GROUP SESSIONS.
--- NOTE | 2018-12-15 20:59 | NUR ---
p--anxiety, DEPRESSED MOOD, ISOLATIVE I-TALKED WITH CLIENT DURING MEDICATION PASS. REVIEWED ALL MEDICATIONS. DISCUSSED HER DAY. TIME FOR CLIENT TO VENT FEELINGS. FLAT AFFECT. R- I HAD A GOOD DAY. MEDINCE CHANGES HELPED. I DON'T UNDERSTAND WHY KARINA CAN'T GET ALL MY APPOINTMENTS CHANGED. I HAVE A DIARY WITH ALL THE NAMES AND NUMBER. STATES SHE CAN'T ASK HIM TO GO INTO HER HOUSE AND BAG UP ALL HER CLOTHING AND AND ITEMS THAT NEEDED WASHED. I HAVE TO DO IT MYSELF P--PROVIDED EMOTIONAL SUPPORT. TEACH COPING SKILLS. MONITOR FOR CHANGES IN MOOD AND BEHAVIOR
--- NOTE | 2018-12-16 00:40 | NUR ---
24 HR chart check completed.
[2018-12-16 07:30] VITALS: BP 103/76
--- NOTE | 2018-12-16 07:33 | NUR ---
ROBBIE FAULKNER [id number] Please refer to the physician's history and physical for past medical history, comorbid conditions, and allergies. Diagnosis: MAJOR DEPRESSION RECURRENT Bc Score: 18,AT RISK WOUND DESCRIPTIONS:( follow up visit ) Wound Number: 1 Location of the wound: right upper arm Thickness: Partial Size: 0.1cm x 0.1cm x 0.1cm Tunneling: none Undermining: none Sinus Tract: none Presence of Exudate: none Amount: none Color: Red Odor: None Periwound Skin Appearance: Erythema Wound edges: approximated Pain (associated with wound): none at time of assessment How does patient state this happened? pt states very itchy and that she was given asprin that she is allergic to and that is what caused these areas Wound Number: 2 Location of the wound: left upper arm Thickness: Partial Size: 0.1cm x 0.1cm x 0.1cm Tunneling: none Undermining: none Sinus Tract: none Presence of Exudate: none Amount: none Color: Red Odor: None Periwound Skin Appearance: Erythema Wound edges: approximated Pain (associated with wound): none at time of assessment How does patient state this happened? pt states very itchy and that she was given asprin that she is allergic to and that is what caused these areas Patient has mulitple intact scabbed areas noted to upper chest, abdomen and upper back. Patient has linear scabbed areas noted to upper and lower back, buttocks and abdomen. Patient states she is still itchy during time of assessment. Patient scratching at time of assessment. No drainage noted at time of assessment. Redness noted at time of assessment. This nurse informed Destini MO caring for patient regarding this since she was already treated with elimite that she may need something by mouth and to run it by Dr. Summers. Surface the patient is resting on: Proform SKIN PREVENTION RECOMMENDATION: 1. Pressure redistribution support surface as appropriate 2. Elevate heels 3. Remove boots/TEDS every shift and reapply 4. Head of bed 30 degrees as tolerated 5. Assess nutrition and hydration 6. Manage moisture 7. Avoid the use of containment devices while in bed 8. Use absorptive products on surfaces limit layers of linens on bed 9. Turn and reposition every 1-2 hours in bed and every 1 hour in chair as tolerated 10. Weight shifts every 15 minutes while up in chair 11. Offloading with pillows or device to keep heels elevated off bed 12. Monitor skin at least every shift 13. Inspect under medical devices twice a day WOUND TREATMENT RECOMMENDATIONS: Cleanse affected areas with soap and water pat areas dry then apply aquaphor ointment bid.
--- NOTE | 2018-12-16 07:49 | NUR ---
Spoke with pt's boyfriend Zan Marquez. Zan stated that he believes pt is doing well. He commented that pt is doing much better than when she was taken to the hospital. Zan confirmed that he will continue to be supportive of pt. He voiced that he understands that she is insecure and that he tells her over and over again that he loves her and he will not leave her. This policy writer typist shared that pt has made comeents that she feels that Zan is embarrassed of her. Zan stated that this is not new. He further stated that she has "spells" when she will say this. Zan stated that he just continues to reassure pt. Zan stated that he has no concerns with pt returning home.
--- NOTE | 2018-12-16 08:30 | NUR ---
Treatment Plan meeting with Dr. Summers, RN, AT, and Seo Manager. Plan for discharge Saturday. Pt. will return home with follow up at [facility].
--- NOTE | 2018-12-16 10:26 | NUR ---
Dr. Acuña notified of wound care recommendations.
--- NOTE | 2018-12-16 10:30 | NUR ---
DR. DAWKINS ON UNIT TO ASSESS PATIENT.
--- NOTE | 2018-12-16 11:54 | NUR ---
AM GROUP/COPING WITH ANXIETY PT ATTENDED AND PARTICIPATED IN ALL GROUP ACTIVITIES. PT RELATED WELL WITH THE ISSUES OF ANXIETY AND HOW TO COPE WITH THOSE FEELINGS. PT WAS REMOVED FROM GROUP AND PLACED IN ISOLATION. PT EXPRESSED NO SUICIDAL IDEATIONS WHILE IN GROUP.
--- NOTE | 2018-12-16 12:16 | NUR ---
Met with pt this AM and informed her of this scientific writer's conversation with pt's boyfriend Zan. Pt stated, "But why would he want to be with me. Look at all the other beautiful women out there." Reassured pt and confirmed again what Zan had stated to this scientific writer. Discussed with pt about inner beauty and pointed out the qualities that pt has. Pt had difficulty hearing positives about herself. Will meet with pt again and discuss self-affirmations.
--- NOTE | 2018-12-16 13:25 | NUR ---
Spoke with Pt. Boyfrienpolly Zuluaga at patient request to notify of discharge tommorow and discharge to home. Zan will transport patient via personal car with parts picker time 11:00 a.m.
--- NOTE | 2018-12-16 13:37 | NUR ---
PT. REFUSED DA AT THIS TIME.
--- NOTE | 2018-12-16 14:32 | NUR ---
Met with pt in her room. Discussed automatic thoughts and self-affirmations. Provided pt with hand-outs on both topics.
--- NOTE | 2018-12-16 15:15 | NUR ---
CONCURRENT REVIEW FAXED TO [facility].
--- NOTE | 2018-12-16 15:20 | NUR ---
1:1 SPENT AFTERNOON GROUP WITH PT WHO IS CONTACT ISOLATION. PT JUST WANTED TO TALK. PT WAS OPEN IN DISCUSSION OF PAST AND PRESENT ISSUES THAT ARE CAUSING HER ANXIETY. PT IS RECEPTIVE TO COPING STRATEGIES TO TAKE HOME WITH HER. PT IS SOMEWHAT CHILDLIKE AND MADE STATEMENTS SUCH , "DON'T HATE ME FOR THIS BUT..." PT EXPRESSED NO SUICIDAL IDEATATIONS DURING 1:1.
[2018-12-16 19:30] VITALS: BP 108/78
--- NOTE | 2018-12-16 19:36 | NUR ---
PATIENT IS ALERT AND ORIENT TO PERSON, PLACE, TIME AND SITUATION; MEMORY GAPS NOTED. DENIES ANY HALLUCINATIONS, DELUSIONS, HI/SI OR PAIN. PATIENT REPORTS FEELING LESS ANXIOUS. PREOCCUPIED WITH WORK SHE HAS TO DO WHEN SHE GETS HOME. MEDICAITON COMPLAINT WITH EDUCATION PROVIDED. Q 15 MINUTE SAFETY CHECK. PATIENT CONTINUE TO ITCH AT SKIN. WOUND NURSE AND INFECTION CONTROL NURSE AWARE. DR. BONILLA AND DR. DAWKINS NOTIFIED WITH MORNING. PATIENT PLACED BACK INTO CONTACT ISOLATION. ORDER FOR ELIMITE 2% CREAM. CREAM PLACED ON ALL OF SKIN AT 1800. PATIENT IS INTERACTIVE WITH STAFF DURING CARE. CONTINUE TO MONITOR MOOD; PROVIDE ONE ON ONE NEEDED.
--- NOTE | 2018-12-16 21:00 | NUR ---
ISOLATIVE TO ROOM DUE TO GETTING REMEDICATED FOR SCABIES. CLIENT IS NERVOUS BUT READY TO GO HOME TOMORROW. DISCUSSED IMPORTANCE OF USING HER COPING SKILLS. ENCOURAGED HER TO NOT WAIT TO LAST MINUTE TO CALL DOCTOR AND REFILL MEDICATIONS. REINFORCED IMPORTANCE OF KEEPING UP WITH OUTPATIENT THERAPYS. VERBALIZED UNDERSTANDING
--- NOTE | 2018-12-17 04:50 | NUR ---
SLEPT WELL TONIGHT. MOVES SELF AROUND 24 HR chart check completed.
--- NOTE | 2018-12-17 08:00 | NUR ---
Treatment Plan meeting with Dr. Summers, RN, AT, SW and [employer]. Plan for discharge today. Pt. to return home. Pt. Boyfriend to transport home via personal car with merchandise pickup/receiving associate time 11:00 a.m.
[2018-12-17 08:15] VITALS: BP 112/63
[2018-12-17] MEDS ORDERED: HYDROXYZINE PAM25 M1 PO (09:39)
[2018-12-17] MEDS ORDERED: QUETIAPINE FUMA50 M1 PO (09:39)
[2018-12-17] MEDS ORDERED: DULOXETINE HCL30 MG PO (09:39)
[2018-12-17] MEDS ORDERED: CYPROHEPTADINE H4 M1 PO (09:39)
--- NOTE | 2018-12-17 11:13 | NUR ---
PATIENT IS READY FOR DISCHARGE; ALL PAPER WORK REVIEW AND SIGNED. PATIENT ON 02 AT 3 LITERS. ALL BELONGING GATHERED. PATIENT ASSISTED INTO WHEELCHAIR AND OFF UNIT TO PRIVATE VEHICLE WITH STAFF ASSISTANCE.
--- NOTE | 2018-12-17 12:47 | NUR ---
DISCHARGE INFORMATION FAXED TO [facility].
--- NOTE | 2018-12-17 13:35 | NUR ---
Met with pt this AM prior to pt's discharge. Pt shared that she was looking forward to returning home but was also feeling a little "nervous." Empathized with pt and reassured her that it is quite commom to feel some anxiety at discharge. Discussed pt's plan to continue with counseling and to work on her self-esteem. Pt confirmed that she will do this.
--- NOTE | 2018-12-17 13:37 | NUR ---
Patient discharged today to her home. Follow-up was scheduled with Dr Vela for psychiatry and with Tiana for counseling at [facility]. Pt's mood improved while at [facility]. She was pleasant and cooperative. Pt participated in programming.
== END 2018-12-17 11:13 | disposition home or self-care (01) | DRG 885 ==
LOC: 3N 22:37
PROVIDERS: ADMIT Psychiatry & Neurology Psychiatry
DX: F33.2 Major depressive disorder, recurrent severe without psychotic features (principal); R45.851 Suicidal ideations; G40.909 Epilepsy, unspecified, not intractable, without status epilepticus; F34.1 Dysthymic disorder; I25.10 Atherosclerotic heart disease of native coronary artery without angina pectoris; E78.5 Hyperlipidemia, unspecified; I10 Essential (primary) hypertension; G62.9 Polyneuropathy, unspecified; F41.9 Anxiety disorder, unspecified; J43.9 Emphysema, unspecified; B86 Scabies; Z83.3 Family history of diabetes mellitus; Z88.6 Allergy status to analgesic agent; Z99.81 Dependence on supplemental oxygen; Z84.89 Family history of other specified conditions; Z79.899 Other long term (current) drug therapy; Z88.8 Allergy status to other drugs, medicaments and biological substances